=== PATIENT | female | born 1960 | race Caucasian/White ===

== ENCOUNTER 2018-12-03 07:31 | Outpatient (CLI) | payer OTHER ==
--- NOTE | 2018-12-03 08:37 | RAD ---
FOUR VIEWS LUMBAR SPINE WITH WEIGHTBEARING AND INCLUDING FLEXION AND EXTENSION VIEWS: Date: 12-03-18 History: Lumbar radiculopathy. Patient states right leg weakness, sciatic pain and hip pain. Comparison: 06-12-06 FINDINGS: Again noted are post-surgical changes related to posterior effusion of the L4 and L5 vertebral bodies with bipedicular screws and posterior rods noted in place. Intradiscal prosthesis is noted. There colbert s been no interval change in post-surgical changes compared to prior exam. The vertebral body heights are within normal limits. There is slight loss of height involving the L2- 3, L3-4, and L5-S1 intervertebral disc spaces. Facet degenerative changes are seen. No fracture or lange bluxation is appreciated. There is slight left convex curvature of the lumbar spine. There has been n o other interval change. IMPRESSION: 1. Stable post-surgical changes L4-5 level when compared to study in 2006. 2. Mild degenerative changes in the lumbar spine. 3. No fracture or subluxation is appreciated. POS: [facility]
--- NOTE | 2018-12-03 09:12 | CT ---
CT LUMBAR SPINE NONCONTRAST: History: Low back pain with right leg radiculopathy. Prior surgery. FINDINGS: Vertebral body heights and AP alignment are maintained. No acute fracture, dislocation. T12-L1, L1-2: Mild osteophytosis. Central canal and neural foramina are patent. L2-3: Mild posterior disc bulge. Circumferential degenerative changes. Moderate stenosis of the centr al canal. Mild right and moderate left foraminal stenoses. L3-4: Mild posterior disc bulge. Prominent circumferential degenerative changes. Small synovial cysts bilaterally contain gas and project into the posterior aspect of the central canal. There is severe central canal stenosis. Moderate bilateral foraminal stenoses. L4-5: Post-operative changes with bilateral pedicle screws, vertical rods, and disc replacement mater ial. Central canal is patent. Mild right foraminal osseous stenosis. L5-S1: Posterior operative decompression. Central canal and neural foramina are patent. IMPRESSION: Degenerative and post-operative changes lumbar spine. Central canal and foraminal stenoses are most s evere at the L3-4 level. POS: [facility]
--- NOTE | 2018-12-03 10:15 | MRI ---
MRI LUMBAR SPINE WITH AND WITHOUT CONTRAST: Technique: Multiplanar, multisequence MRI images were obtained of the lumbar spine. Indication: Lumbar radiculopathy. Low back pain with right leg radiation. History of prior lumbar lelia ruthy in 2006. Comparison: None. FINDINGS: Pedicle screws are seen transfixing L4 and L5. An interbody implants appears to be in adequate positi on. Lumbar vertebrae maintain normal height and alignment. Disc spaces are maintained. Mild degenerat harpal osteophytes in the lumbar vertebrae. T12-L1: No significant disc bulge or protrusion. No central canal stenosis. L2-3: Mild diffuse disc bulge flattens the thecal sac. Mild facet arthrosis and hypertrophy. Mild dante tral canal stenosis. The foramina appear patent. L3-4: Slight anterolisthesis. Diffuse disc bulge. Facet arthrosis and hypertrophy. Moderate central c anal stenosis. No significant foraminal stenosis. L4-5: No evidence of disc bulge or protrusion. Facet hypertrophy. Post-operative changes. No signific ant central canal stenosis. There is right foraminal stenosis secondary to hypertrophic change. L5-S1: No significant disc bulge or protrusion. Facet hypertrophy. No significant central canal or fo raminal stenosis. IMPRESSION: Degenerative and post-operative changes of the lumbar spine. Moderate central canal stenosis at L3-4 as described. POS: [facility]
[2018-12-03] MEDS ORDERED: Gadobenate Dimeglumine 529 MG/1 ML (20ML VIAL) ONE (13:37)
== END 2018-12-03 07:32 | disposition home or self-care (01) ==
LOC: BICCT 07:31
PROVIDERS: ATTEND Surgery
DX: M47.26 Other spondylosis with radiculopathy, lumbar region (principal); M47.816 Spondylosis without myelopathy or radiculopathy, lumbar region; Z98.890 Other specified postprocedural states
CPT/HCPCS: 72110; 72131; 72158; A9577

== ENCOUNTER 2020-12-02 12:42 | Emergency (ER) | payer OTHER, SELFPAY ==
--- NOTE | 2020-12-02 16:13 | RAD ---
EXAM: RIGHT KNEE FOUR VIEWS: 12/02/20 HISTORY: Injury from a fall in the parking lot. FINDINGS: Nondisplaced transverse fracture through the lower third of the patella. Evidence for healed mid righ t femoral shaft fracture. No significant knee joint effusion. IMPRESSION: Nondisplaced transverse fracture through the lower third of the patella. POS: [facility]
--- NOTE | 2020-12-02 16:15 | RAD ---
EXAM: LEFT WRIST THREE VIEWS: 12/02/20 HISTORY: Injury from a fall in the parking lot. FINDINGS: Minimal osteoarthrosis and degenerative changes of the wrist. No evidence for acute fracture or dislo cation. Minimal soft tissue swelling. IMPRESSION: Minimal soft tissue swelling of the wrist without acute fracture or dislocation. If the patient has persistent nonresolving wrist pain, consider follow-up examination in 5-7 days. POS: [facility]
== END 2020-12-02 16:20 | disposition home or self-care (01) ==
LOC: ERS 12:42
DX: S82.002A Unspecified fracture of left patella, initial encounter for closed fracture (principal); S63.502A Unspecified sprain of left wrist, initial encounter; Z79.899 Other long term (current) drug therapy; W18.30XA Fall on same level, unspecified, initial encounter; Y92.481 Parking lot as the place of occurrence of the external cause

== ENCOUNTER 2021-07-26 10:59 | Outpatient (CLI) | payer OTHER | END 2021-07-26 11:00 | disposition home or self-care (01) | LOC: BICMAMMO 10:59 | PROVIDERS: ATTEND Family Medicine | DX: Z12.31 Encounter for screening mammogram for malignant neoplasm of breast (principal); Z80.3 Family history of malignant neoplasm of breast; Z85.850 Personal history of malignant neoplasm of thyroid; Z91.89 Other specified personal risk factors, not elsewhere classified | CPT/HCPCS: 77063; 77067 ==